=== PATIENT | female | born 1950 | race Caucasian/White ===

== ENCOUNTER 2017-12-31 05:53 | Day surgery (SDC) | payer OTHER ==
[2017-12-30 09:32] LABS: BASOPHILS # (AUTO) 0.02 x10^3/uL (0-0.1); BASOPHILS % (AUTO) 0 % (0-1); EOSINOPHILS # (AUTO) 0.12 x10^3/uL (0-0.4); EOSINOPHILS % (AUTO) 2 % (1-7); LYMPHOCYTES # (AUTO) 1.49 x10^3/uL (1-3.4); LYMPHOCYTES % (AUTO) 26 % (22-44); MD NO; MEAN CORPUSCULAR HEMOGLOBIN 30.9 pg (27.0-34.8); MEAN CORPUSCULAR HGB CONC 33.4 g/dL (32.4-35.8); MEAN CORPUSCULAR VOLUME 92.4 fL (80-100); MEAN PLATELET VOLUME 7.8 fL (7.4-10.4); MONOCYTES # (AUTO) 0.57 x10^3/uL (0.2-0.8); MONOCYTES % (AUTO) 10 % (2-9); NEUTROPHILS # (AUTO) 3.43 x10^3/uL (1.8-6.8); NEUTROPHILS % (AUTO) 61 % (42-75); PLATELET COUNT 197 x10^3/uL (130-400); RED BLOOD COUNT 5.31 x10^6/uL (3.82-5.3); RED CELL DISTRIBUTION WIDTH 15.1 % (9.6-15.2)
[2017-12-30 09:42] LABS: ANION GAP 5 mmol/L (5-15); CHLORIDE 111 mmol/L (98-107)
[2017-12-30 09:43] LABS: CREATININE 0.84 mg/dL (0.55-1.02)
[~2017-12-31] VITALS: Ht 165.1 cm; Wt 60.0 kg
[~2017-12-31 05:53] MED LIST: ASPI-496 PO; ASPI325T17 PO; CLOP75TA PO; DIAZ5TAB PO; ENAL5TAB PO; EZET10TA18 PO; HYDR-3237 PO; METO25TA35 PO; MIRT30TA4 PO; MORP15TA3 PO; OXYC5TAB2 PO; PREG150C PO; ROSU20TA PO; SIMV20TA3 PO; TEMA30CA PO; TIZA4TAB PO; tylenol arthritis PO
[2017-12-31] MEDS ORDERED: FENTANYL PF 100 MCG/2ML ONE (07:05)
[2017-12-31] MEDS ORDERED: HEPARIN 1,000 UNITS/ML, 10ML ONE (07:06)
[2017-12-31] MEDS ORDERED: FLUMAZENIL 0.1 MG/1 ML, 5ML ONE (07:06)
[2017-12-31] MEDS ORDERED: MIDAZOLAM 1 MG/ML, 5ML ONE (07:06)
[2017-12-31] MEDS ORDERED: NITROGLYCERIN 5 MG/ML, 10ML ONE (07:06)
[2017-12-31] MEDS ORDERED: NALOXONE 1 MG/ML, 2ML ONE (07:06)
[2017-12-31] MEDS ORDERED: PROTAMINE SULFATE 10 MG/ML, 25ML ONE (07:06)
[2017-12-31 07:16] VITALS: BP 160/75
[2017-12-31] MEDS ORDERED: D5%-0.45% NACL 1,000 ML IV SCH (07:18)
[2017-12-31] MEDS ORDERED: LIDOCAINE 2%, 20ML ONE (07:18)
[2017-12-31] MEDS ORDERED: LACTATED RINGERS 1,000 ML IV SCH (09:00)
[2017-12-31] MEDS ORDERED: VISIPAQUE 270 MG/ML, 50ML BOTTLE ONE (09:00)
== END 2017-12-31 11:40 ==
LOC: OUT 05:53
PROVIDERS: ATTEND Surgery
DX: I70.218 Atherosclerosis of native arteries of extremities with intermittent claudication, other extremity (principal); F41.9 Anxiety disorder, unspecified; K21.9 Gastro-esophageal reflux disease without esophagitis; I25.2 Old myocardial infarction; E78.00 Pure hypercholesterolemia, unspecified; F17.210 Nicotine dependence, cigarettes, uncomplicated; Z90.710 Acquired absence of both cervix and uterus; Z96.651 Presence of right artificial knee joint; Z90.49 Acquired absence of other specified parts of digestive tract; Z98.42 Cataract extraction status, left eye; Z98.41 Cataract extraction status, right eye; Z95.1 Presence of aortocoronary bypass graft; Z79.82 Long term (current) use of aspirin; Z88.0 Allergy status to penicillin
CPT/HCPCS: 36415; 37236; 75710; 76937; 80048; 85025; 99156; 99157; C1725; C1751; C1769; C1876; C1894; J1644; J2250; J2720; J3010; J3490; Q9966; J2310

== ENCOUNTER 2018-12-11 05:40 | Inpatient (IN) | payer BC, MEDICARE ==
[~2018-12-11] VITALS: Ht 165.1 cm; Wt 60.7 kg
[~2018-12-11 05:40] MED LIST changes: -ROSU20TA PO; +ROSU20TA2 PO
[2018-12-11] MEDS ORDERED: LACTATED RINGERS 1,000 ML IV SCH (06:13)
[2018-12-11] MEDS ORDERED: BACITRACIN 50,000 UNIT ONE (06:46)
[2018-12-11] MEDS ORDERED: THROMBIN 5,000 UNIT VIAL TP ONE ×2 (06:46→08:53)
[2018-12-11] MEDS ORDERED: FENTANYL PF 250 MCG/5ML ONE (07:16)
[2018-12-11] MEDS ORDERED: MIDAZOLAM 1 MG/ML, 2ML ONE (07:16)
[2018-12-11] MEDS ORDERED: VANCOMYCIN 1,000 MG ONE (07:30)
[2018-12-11] MEDS ORDERED: TOBRAMYCIN SULFATE 1.2 GM IMP ONE (08:12)
[2018-12-11] MEDS ORDERED: MEPERIDINE/PF 100 MG/ML ONE (08:56)
[2018-12-11] MEDS ORDERED: HEPARIN 1,000 UNITS/ML, 30ML IVPB ONE (09:21)
[2018-12-11] MEDS ORDERED: OXYcodone 5 MG/5 ML ORAL.SOL UDC PO PRN (09:30)
[2018-12-11] MEDS ORDERED: ACETAMINOPHEN 325 MG TABLET PO PRN (09:30)
[2018-12-11] MEDS ORDERED: HALOPERIDOL 5 MG/ML IV PRN (09:30)
[2018-12-11] MEDS ORDERED: MEPERIDINE/PF 25MG/0.5ML IVPush PRN (09:30)
[2018-12-11] MEDS ORDERED: PROMETHAZINE 25 MG/ML, 1ML IV PRN (09:30)
[2018-12-11] MEDS ORDERED: hydrALAzine 20 MG/ML, 1ML IV PRN (09:30)
[2018-12-11] MEDS ORDERED: ALBUTEROL/IPRATROPIUM 2.5MG/0.5MG, 3 ML NPPB PRN (09:30)
[2018-12-11] MEDS ORDERED: OXYcodone 5 MG/5 ML ORAL.SOL UDC ONE (09:49)
[2018-12-11] MEDS ORDERED: FENTANYL PF 100 MCG/2ML ONE (09:49)
[2018-12-11] MEDS ORDERED: ACETAMINOPHEN 650 MG/20.3 ML UDC ONE (09:49)
[2018-12-11] MEDS: FENTANYL PF 100 MCG/2ML IV PRN ×2 (09:51→10:02)
[2018-12-11] MEDS ORDERED: METHOCARBAMOL 1,000 MG in DEXTROSE 5% 100 ML IV ONE (10:00)
[2018-12-11] MEDS ORDERED: HYDROmorphone 2 MG/ML, 1ML ONE (10:03)
[2018-12-11] MEDS: HYDROmorphone 2 MG/ML, 1ML IVPush PRN ×2 (10:09→10:21)
[2018-12-11 10:50] VITALS: BP 121/60
[2018-12-11] MEDS ORDERED: ONDANSETRON 2MG/ML, 2ML IV PRN (11:30)
[2018-12-11] MEDS ORDERED: morphine SULFATE 10 MG/ML, 1ML IV PRN (11:30)
[2018-12-11] MEDS ORDERED: METOCLOPRAMIDE 5 MG/ML, 2ML IV SCH (11:30)
[2018-12-11] MEDS ORDERED: BISACODYL 10 MG SUPP PR PRN (11:30)
[2018-12-11] MEDS ORDERED: HYDROcodone/APAP 5/325 TABLET PO PRN (11:30)
[2018-12-11] MEDS ORDERED: PROMETHAZINE 25 MG/ML, 1ML IM PRN (11:30)
[2018-12-11] MEDS ORDERED: MAGNESIUM HYDROXIDE 8%, 30ML UDC PO PRN (11:30)
[2018-12-11] MEDS: D5%-0.9% NACL+KCL 20MEQ 1,000 ML IV SCH ×2 (11:43→23:21)
[2018-12-11] MEDS: EZETIMIBE 10 MG TABLET PO SCH (11:49)
[2018-12-11] MEDS: PREGABALIN 75 MG CAPSULE PO SCH ×2 (11:50→20:58)
[2018-12-11] MEDS: TIZANIDINE 4MG TABLET PO SCH ×2 (13:04→20:57)
[2018-12-11] MEDS ORDERED: KETAMINE 10 MG/ML, 20ML ONE (15:02)
[2018-12-11] MEDS ORDERED: CEFAZOLIN 1,000 MG ONE (15:02)
[2018-12-11] MEDS ORDERED: DEXAMETHASONE 4 MG/ML, 1ML ONE (15:02)
[2018-12-11] MEDS ORDERED: PROPOFOL 10 MG/ML, 20ML ONE (15:02)
[2018-12-11] MEDS ORDERED: ROCURONIUM 10MG/ML,5ML ONE (15:02)
[2018-12-11] MEDS ORDERED: PHENYLEPHRINE 10 MG/ML ONE (15:02)
[2018-12-11 15:35] VITALS: BP 112/57
[2018-12-11] MEDS: HYDROcodone/APAP 10/325 MG TABLET PO PRN ×2 (15:40→19:49)
[2018-12-11] MEDS: CEFAZOLIN PMX 1GM/50ML 50 ML IVPB SCH (16:15)
[2018-12-11] MEDS: METOPROLOL TARTRATE 25 MG TABLET PO SCH (16:48)
[2018-12-11] MEDS ORDERED: NICOTINE 14MG/24 HR PATCH.TD24 TD SCH (17:00)
[2018-12-11] MEDS: METHOCARBAMOL 750 MG in DEXTROSE 5% 100 ML IV SCH (17:58)
[2018-12-11 18:20] VITALS: BP 117/79
[2018-12-11] MEDS ORDERED: ENALAPRIL 10 MG TABLET ONE (20:53)
[2018-12-11] MEDS: SENNA/DOCUSATE TABLET PO SCH (20:57)
[2018-12-11] MEDS ORDERED: MIRTAZAPINE 30 MG TABLET PO SCH (21:00)
[2018-12-11] MEDS ORDERED: ENALAPRIL 5MG TABLET PO SCH (21:00)
[2018-12-11] MEDS ORDERED: ATORVASTATIN 40 MG TABLET PO SCH (21:00)
[2018-12-11] MEDS ORDERED: MIRTAZAPINE 30 MG TAB.RAPDIS PO SCH (21:00)
[2018-12-11] MEDS ORDERED: TEMAZEPAM 30 MG CAPSULE PO SCH (21:00)
[2018-12-12] MEDS: HYDROcodone/APAP 10/325 MG TABLET PO PRN ×4 (00:15→13:03)
[2018-12-12] MEDS: CEFAZOLIN PMX 1GM/50ML 50 ML IVPB SCH (00:15)
[2018-12-12 01:20] VITALS: BP 114/58
[2018-12-12] MEDS: METHOCARBAMOL 750 MG in DEXTROSE 5% 100 ML IV SCH ×2 (02:11→10:00)
[2018-12-12 05:38] LABS: ALBUMIN 3.2 g/dL (3.4-5.0); ANION GAP 4 mmol/L (5-15); CALCIUM 8.5 mg/dL (8.5-10.1); CHLORIDE 113 mmol/L (98-107); CREATININE 0.66 mg/dL (0.55-1.02)
[2018-12-12] MEDS: METOPROLOL TARTRATE 25 MG TABLET PO SCH (05:39)
[2018-12-12] MEDS ORDERED: ENOXAPARIN 30 MG/0.3 ML SQ SCH (06:00)
[2018-12-12 06:38] VITALS: BP 103/54
[2018-12-12] MEDS: D5%-0.9% NACL+KCL 20MEQ 1,000 ML IV SCH (08:00)
[2018-12-12] MEDS: TIZANIDINE 4MG TABLET PO SCH (09:15)
[2018-12-12] MEDS: PREGABALIN 75 MG CAPSULE PO SCH (09:15)
[2018-12-12] MEDS: SENNA/DOCUSATE TABLET PO SCH (09:16)
[2018-12-12] MEDS: EZETIMIBE 10 MG TABLET PO SCH (09:16)
[2018-12-12] MEDS ORDERED: METHOCARBAMOL 750 MG TABLET PO SCH (10:30)
[2018-12-12 12:46] VITALS: BP 128/54
[2018-12-12] MEDS ORDERED: OXYC5TAB3 PO (12:54)
[2018-12-13] MEDS ORDERED: METHOCARBAMOL 750 MG TABLET PO SCH (18:00)
== END 2018-12-12 13:21 | disposition home or self-care (01) | DRG 460 ==
LOC: ORIP 05:40 → 4NOR 10:45 → DCLOUNGE 12-12 13:06
PROVIDERS: ADMIT Orthopaedic Surgery Orthopaedic Surgery of the Spine; ATTEND Orthopaedic Surgery Orthopaedic Surgery of the Spine
PROC: 0SB20ZZ Excision of Lumbar Vertebral Disc, Open Approach (ICD-10-PCS; 2018-12-11)
PROC: 3E0U0GB Introduction of Recombinant Bone Morphogenetic Protein into Joints, Open Approach (ICD-10-PCS; 2018-12-11)
PROC: 0SG00A0 Fusion of Lumbar Vertebral Joint with Interbody Fusion Device, Anterior Approach, Anterior Column, Open Approach (ICD-10-PCS; principal; 2018-12-11 07:30)
DX: M48.061 Spinal stenosis, lumbar region without neurogenic claudication (principal); M43.16 Spondylolisthesis, lumbar region; G89.29 Other chronic pain; M51.16 Intervertebral disc disorders with radiculopathy, lumbar region; E78.5 Hyperlipidemia, unspecified; F17.200 Nicotine dependence, unspecified, uncomplicated; I10 Essential (primary) hypertension; Z98.49 Cataract extraction status, unspecified eye; Z88.0 Allergy status to penicillin; Z88.1 Allergy status to other antibiotic agents; Z90.710 Acquired absence of both cervix and uterus; Z79.899 Other long term (current) drug therapy
CPT/HCPCS: 36415; 72100; 74018; 80048; 82040; C1713; G0378; J0690; J1100; J1170; J1644; J1650; J2250; J2704; J3010; J3260; J3370; C1762; J2175; J2370; J2765; J2800; J3480; J7120

== ENCOUNTER 2019-11-24 09:37 | Outpatient (CLI) | payer MEDICARE ==
[~2019-11-24 09:37] MED LIST changes: -EZET10TA18 PO; +EZET10TA70 PO; +MORP-29 PO; -MORP15TA3 PO; +OXYC5TAB3 PO; +SIMV20TA19 PO; -SIMV20TA3 PO; -TIZA4TAB PO; +TIZA4TAB2 PO
== END 2019-11-24 23:59 | disposition home or self-care (01) ==
LOC: CVU 09:37
PROVIDERS: ATTEND Internal Medicine Cardiovascular Disease
DX: I06.8 Other rheumatic aortic valve diseases (principal); I65.23 Occlusion and stenosis of bilateral carotid arteries; I10 Essential (primary) hypertension; I73.9 Peripheral vascular disease, unspecified
CPT/HCPCS: 93306; 93880

== ENCOUNTER → 2021-02-20 | Outpatient (CLI) | payer MEDICARE ==
[~2021-02-20] MED LIST changes: -ENAL5TAB PO; +ENAL5TAB10 PO; +MIRT-15 PO; -MIRT30TA4 PO; -OXYC5TAB3 PO; +OXYC5TAB98 PO
== END | disposition home or self-care (01) ==
LOC: CVU 08:43
PROVIDERS: ATTEND Internal Medicine Cardiovascular Disease
DX: I65.23 Occlusion and stenosis of bilateral carotid arteries (principal); I73.9 Peripheral vascular disease, unspecified
CPT/HCPCS: 93880